=== PATIENT | female | born 1980 | race American Indian/Alaskan Native ===

== ENCOUNTER → 2023-04-01 09:49 | Outpatient (CLI) | payer OTHER, SELFPAY ==
[2023-04-01 12:01] LABS: Hematocrit 40.2 % (36-46); Hemoglobin 13.7 g/dL (12.0-16.0); Mean Corpuscular Hemoglobin 30.2 PG (26-34); Mean Corpuscular Volume 88.8 fL (80-100); Platelet Count 310 X10^3/uL (150-400); Red Blood Cell Count 4.53 X10^6/uL (4.0-5.2); Red Cell Distribution Width 13.6 % (11.6-14.8); White Blood Cell Count 8.1 X10^3/uL (4.5-11.0)
[2023-04-01 12:26] LABS: Alanine Aminotransferase 76 IU/L (<35); Albumin 3.9 g/dL (3.5-5.0); Alkaline Phosphatase 96 U/L (38-126); Aspartate Aminotransferase 61 IU/L (14-36); BUN Creatinine Ratio 17.3 (6-22); Bilirubin Total 0.5 mg/dL (0.2-1.3); Blood Urea Nitrogen 9 mg/dL (7-17); Calcium 9.2 mg/dL (8.4-10.2); Carbon Dioxide 25 mmol/L (22-32); Chloride 102 mmol/L (98-107); Cholesterol 212 mg/dL (140-199); Estimated Glomerular Filt Rate > 60 mL/min (>60); Globulin 4.1 g/dL (1.7-4.1); Glucose 126 mg/dL (70-100); HDL Cholesterol 50 mg/dL (40-60); HEMOLYSIS < 15 (0-50); LDL Cholesterol Calculated 130 mg/dL (<100); Potassium 4.3 mmol/L (3.4-5.1); Sodium 135 mmol/L (137-145); Triglycerides 161 mg/dL (35-150)
[2023-04-01 12:57] LABS: TSH w/ Reflex to FT4 2.63 uIU/mL (0.47-4.68)
[2023-04-01 14:59] LABS: Creatinine Urine Random 101.4 mg/dL
[2023-04-01 15:07] LABS: Microalbumin Urine Random 6.8 mg/dL (0-1.6)
[2023-04-02 06:41] LABS: Labcorp Hemoglobin (Hb) A1c 9.8 % (4.8-5.6)
== END ==
PROVIDERS: PCP Internal Medicine; Referring Provider Internal Medicine; Visit Provider Internal Medicine
DX: E03.9 Hypothyroidism, unspecified (principal); E11.69 Type 2 diabetes mellitus with other specified complication; E78.5 Hyperlipidemia, unspecified; Z86.39 Personal history of other endocrine, nutritional and metabolic disease; Z87.42 Personal history of other diseases of the female genital tract
CPT/HCPCS: 36415; 80053; 80061; 82043; 82570; 83036; 84443; 85027

== ENCOUNTER → 2023-07-14 12:10 | Outpatient (CLI) | payer OTHER, SELFPAY ==
[2023-07-14 16:03] LABS: Free T4, Direct Thyroxine 1.42 ng/dL (0.78-2.19)
[2023-07-15 02:08] LABS: HBsAg Screen Negative (Negative); Hepatitis A Antibody IgM Negative (Negative); Hepatitis B Core Antibody IgM Negative (Negative); Hepatitis C Antibody Non Reactive (Non Reactive)
== END ==
PROVIDERS: PCP Internal Medicine; Referring Provider Internal Medicine; Visit Provider Internal Medicine
DX: Z20.9 Contact with and (suspected) exposure to unspecified communicable disease (principal); E03.9 Hypothyroidism, unspecified
CPT/HCPCS: 36415; 80074; 84439; 84443

== ENCOUNTER → 2023-10-17 16:59 | Outpatient (CLI) | payer OTHER, SELFPAY ==
[2023-10-17 18:16] LABS: Hemoglobin A1C% w Est Avg Glu 7.1 % (4.0-6.0)
[2023-10-17 19:19] LABS: TSH w/ Reflex to FT4 1.03 uIU/mL (0.47-4.68)
== END ==
PROVIDERS: PCP Internal Medicine; Referring Provider Internal Medicine; Visit Provider Internal Medicine
DX: E11.69 Type 2 diabetes mellitus with other specified complication (principal); E78.5 Hyperlipidemia, unspecified; E03.9 Hypothyroidism, unspecified; Z86.39 Personal history of other endocrine, nutritional and metabolic disease
CPT/HCPCS: 36415; 83036; 84443

== ENCOUNTER → 2024-01-18 10:41 | Outpatient (CLI) | payer OTHER, SELFPAY ==
[2024-01-18 12:38] LABS: Hemoglobin A1C% w Est Avg Glu 5.9 % (4.0-6.0)
[2024-01-18 13:05] LABS: BUN Creatinine Ratio 11.3 (6-22); Blood Urea Nitrogen 7 mg/dL (7-17); Calcium 9.7 mg/dL (8.4-10.2); Carbon Dioxide 24 mmol/L (22-32); Chloride 108 mmol/L (98-107); Cholesterol 170 mg/dL (140-199); Estimated Glomerular Filt Rate > 60 mL/min (>60); Glucose 108 mg/dL (70-100); HDL Cholesterol 47 mg/dL (40-60); HEMOLYSIS < 15 (0-50); LDL Cholesterol Calculated 104 mg/dL (<100); Potassium 4.9 mmol/L (3.4-5.1); Sodium 139 mmol/L (137-145); Triglycerides 96 mg/dL (35-150)
[2024-01-18 13:33] LABS: Creatinine Urine Random 182.4 mg/dL
[2024-01-18 13:34] LABS: TSH w/ Reflex to FT4 0.33 uIU/mL (0.47-4.68)
[2024-01-18 13:36] LABS: Microalbumi Creatinin Ratio Ur 18.6 ug/mg CR (<30); Microalbumin Urine Random 3.4 mg/dL (0-1.6)
[2024-01-20 05:19] LABS: Free T4, Direct Thyroxine 1.88 ng/dL (0.78-2.19)
== END ==
PROVIDERS: PCP Internal Medicine; Referring Provider Internal Medicine; Visit Provider Internal Medicine
DX: E78.2 Mixed hyperlipidemia (principal); E03.9 Hypothyroidism, unspecified; E11.69 Type 2 diabetes mellitus with other specified complication; E78.5 Hyperlipidemia, unspecified
CPT/HCPCS: 36415; 80048; 80061; 82043; 82570; 83036; 84439; 84443

== ENCOUNTER → 2024-04-25 09:35 | Outpatient (CLI) | payer OTHER, SELFPAY ==
[2024-04-25 11:29] LABS: BUN Creatinine Ratio 8.7 (6-22); Blood Urea Nitrogen 6 mg/dL (7-17); Calcium 9.1 mg/dL (8.4-10.2); Carbon Dioxide 23 mmol/L (22-32); Chloride 110 mmol/L (98-107); Estimated Glomerular Filt Rate > 60 mL/min (>60); Glucose 97 mg/dL (70-100); HEMOLYSIS < 15 (0-50); Potassium 4.7 mmol/L (3.4-5.1); Sodium 138 mmol/L (137-145)
[2024-04-25 11:31] LABS: Hemoglobin A1C% w Est Avg Glu 6.1 % (4.0-6.0)
[2024-04-25 12:51] LABS: TSH w/ Reflex to FT4 2.13 uIU/mL (0.47-4.68)
== END ==
PROVIDERS: PCP Internal Medicine; Referring Provider Internal Medicine; Visit Provider Internal Medicine
DX: E03.9 Hypothyroidism, unspecified (principal); E11.69 Type 2 diabetes mellitus with other specified complication; E78.5 Hyperlipidemia, unspecified
CPT/HCPCS: 36415; 80048; 83036; 84443

== ENCOUNTER → 2024-10-22 08:58 | Outpatient (CLI) | payer OTHER, SELFPAY ==
[2024-10-22 09:55] LABS: Hemoglobin A1C% w Est Avg Glu 5.7 % (4.0-6.0)
[2024-10-22 10:07] LABS: Aspartate Aminotransferase 31 IU/L (14-36); BUN Creatinine Ratio 9.9 (6-22); Blood Urea Nitrogen 7 mg/dL (7-17); Calcium 9.5 mg/dL (8.4-10.2); Carbon Dioxide 26 mmol/L (22-32); Chloride 105 mmol/L (98-107); Estimated Glomerular Filt Rate > 60 mL/min (>60); Glucose 103 mg/dL (70-100); HEMOLYSIS < 15 (0-50); Potassium 4.5 mmol/L (3.4-5.1); Sodium 137 mmol/L (137-145)
[2024-10-22 10:12] LABS: Creatinine Urine Random 103.11 mg/dL
[2024-10-22 10:35] LABS: TSH w/ Reflex to FT4 2.72 uIU/mL (0.47-4.68)
== END ==
PROVIDERS: PCP Internal Medicine; Referring Provider Internal Medicine; Visit Provider Internal Medicine
DX: E03.9 Hypothyroidism, unspecified (principal); E11.69 Type 2 diabetes mellitus with other specified complication; E78.5 Hyperlipidemia, unspecified
CPT/HCPCS: 36415; 80048; 82043; 82570; 83036; 84443; 84450

== ENCOUNTER → 2025-02-01 13:09 | Outpatient (CLI) | payer OTHER, SELFPAY ==
--- NOTE | 2025-02-01 13:10 | DI.RAD.S_ITS ---
PROCEDURE: XR CHEST 2V INDICATIONS: Cough, r/o PNA TECHNIQUE: 2 views of the chest were acquired. COMPARISON: None. FINDINGS: Surgical changes and devices: None. Lungs and pleura: Lungs are clear. No pleural effusions or pneumothorax. Mediastinum: Mediastinal contours are normal. Heart size is normal. Bones and chest wall: No suspicious bony abnormalities. Soft tissues appear unremarkable. IMPRESSION: No acute cardiopulmonary abnormality is seen. Dictated by: Chance Mcgill M.D. on 02/02/2025 at 22:47 Approved by: Chance Mcgill M.D. on 02/02/2025 at 22:47
== END ==
PROVIDERS: PCP Internal Medicine; Referring Provider Nurse Practitioner Family; Visit Provider Nurse Practitioner Family
DX: J02.9 Acute pharyngitis, unspecified (principal); R05.9 Cough, unspecified
CPT/HCPCS: 0241U; 71046; 87070; 87147

== ENCOUNTER → 2025-02-01 13:12 | Outpatient (CLI) | payer OTHER, SELFPAY ==
[2025-02-01 14:11] LABS: Influenza A - CEPHEID Flu A NEGATIVE (NEGATIVE); Influenza B - CEPHEID Flu B NEGATIVE (NEGATIVE); Respiratory Syncytial Virus Negative (Negative)
[2025-02-01 14:23] LABS: COVID-19 CEPHEID 4-PLEX PCR Negative (Negative)
== END ==
PROVIDERS: PCP Internal Medicine; Visit Provider Nurse Practitioner Family
DX: J02.9 Acute pharyngitis, unspecified (principal); R05.9 Cough, unspecified
CPT/HCPCS: 0241U; 87070; 87147

== ENCOUNTER → 2025-04-22 09:05 | Outpatient (CLI) | payer OTHER, SELFPAY ==
[2025-04-22 09:50] LABS: Hemoglobin A1C% w Est Avg Glu 5.8 % (4.0-6.0)
[2025-04-22 10:02] LABS: Blood Urea Nitrogen 12 mg/dL (7-17); Calcium 9.6 mg/dL (8.4-10.2); Carbon Dioxide 22 mmol/L (22-32); Chloride 106 mmol/L (98-107); Estimated Glomerular Filt Rate > 60 mL/min (>60); Glucose 94 mg/dL (70-99); HEMOLYSIS < 15 (0-50); Potassium 4.6 mmol/L (3.4-5.1); Sodium 136 mmol/L (137-145)
[2025-04-22 10:31] LABS: TSH w/ Reflex to FT4 9.33 uIU/mL (0.47-4.68)
[2025-04-22 10:56] LABS: Free T4, Direct Thyroxine 1.31 ng/dL (0.78-2.19)
== END ==
PROVIDERS: PCP Internal Medicine; Referring Provider Internal Medicine; Visit Provider Internal Medicine
DX: E03.9 Hypothyroidism, unspecified (principal); E11.69 Type 2 diabetes mellitus with other specified complication; E78.5 Hyperlipidemia, unspecified
CPT/HCPCS: 36415; 80048; 83036; 84439; 84443